=== PATIENT | male | born 1950 | race African-American/Black ===

== ENCOUNTER 2023-09-05 13:17 | Inpatient (IN) | payer OTHER ==
[2023-09-05 14:10] VITALS: BMI 19.2
[2023-09-05] MEDS ORDERED: MAG HYDROX/AL HYDROX/SIMETH 30 ML UNIT-DOSE CUP PO PRN (15:06)
[2023-09-05] MEDS ORDERED: DICYCLOMINE HCL 10 MG CAPSULE PO PRN (15:06)
[2023-09-05] MEDS ORDERED: LOPERAMIDE HCL 2 MG CAPSULE PO PRN (15:06)
[2023-09-05] MEDS ORDERED: LORazepam 1 MG TABLET PO PRN (15:06)
[2023-09-05] MEDS ORDERED: MAGNESIUM HYDROX 2400MG/30ML ORAL SUSPENSION 30 ML CUP PO PRN (15:06)
[2023-09-05] MEDS ORDERED: BENZONATATE 200 MG CAPSULE PO PRN (15:06)
[2023-09-05] MEDS ORDERED: NALOXONE HCL (KLOXXADO) 8 MG SPRAY NS PRN (15:06)
[2023-09-05] MEDS ORDERED: POLYETHYLENE GLYCOL (HEALTHYLAX) 3350 17 GM PACKET PO PRN (15:06)
[2023-09-05] MEDS ORDERED: ONDANSETRON *ODT* 4 MG TABLET SL PRN (15:06)
[2023-09-05] MEDS ORDERED: BENZOCAINE/MENTHOL (CHLORASEPTIC ) LOZENGE MM PRN (15:06)
[2023-09-05] MEDS ORDERED: NALOXONE HCL 0.4 MG/ML VIAL IM PRN (15:06)
[2023-09-05] MEDS ORDERED: BISMUTH SUBSALICYLATE 524 MG/30 ML PO PRN (15:06)
[2023-09-05] MEDS ORDERED: ACETAMINOPHEN 325 MG TABLET (FP) PO PRN (15:06)
[2023-09-05] MEDS ORDERED: IBUPROFEN 600 MG TABLET (FP) PO PRN (15:06)
[2023-09-05] MEDS ORDERED: IBUPROFEN 400 MG TABLET (FP) PO PRN (15:06)
[2023-09-05] MEDS ORDERED: amLODIPine BESYLATE 5 MG TABLET (FP) ONE (16:02)
[2023-09-05] MEDS: amLODIPine BESYLATE 10 MG TABLET (FP) PO SCH (16:03)
[2023-09-05] MEDS: LORazepam 1 MG TABLET PO SCH (18:01)
[2023-09-05] MEDS ORDERED: ALBUTEROL SO4 0.083% IH SOL 2.5 MG/3 ML VIAL.NEB. NEB PRN (18:50)
[2023-09-05] MEDS: MELATONIN 5 MG TABLETS PO SCH (22:20)
[2023-09-05] MEDS: BUDESONIDE/FORMETEROL FUMARATE 80/4.5 mcg INHALER IH SCH (22:20)
[2023-09-05] MEDS: METHOCARBAMOL 500 MG TABLET PO PRN (22:20)
[2023-09-05] MEDS: THIAMINE 100 MG TABLET PO SCH (22:20)
[2023-09-05] MEDS: guaiFENesin 600 MG TABLET.ER (FP) PO PRN (22:23)
[2023-09-06] MEDS: PRENATAL VITAMINS W/ FOLIC ACID TABLET (FP) PO SCH (10:10)
[2023-09-06 11:02] LABS: HEMATOCRIT 36.3 % (35.4-49); HEMOGLOBIN 12.1 GM/dL (11.7-16.9); MCH 27.7 pg (25.7-33.7); MCHC 33.3 g/dl (32.0-35.9); MEAN CELL VOLUME 83.2 fl (80-96); MEAN PLT VOLUME 7.6 fl (7.5-11.1); PLATELET COUNT 267 10^3/uL (134-434); RBC 4.37 M/mm3 (4.00-5.60); RDW 14.2 % (11.9-15.9); WHITE BLOOD COUNT 5.1 K/mm3 (4.0-10.0)
[2023-09-06 12:24] LABS: CHLORIDE 108 mmol/L (98-107); POTASSIUM 4.2 mmol/L (3.5-5.1); SODIUM 142 mmol/L (136-145)
[2023-09-06 12:29] LABS: SGPT/ALT 17 U/L (13-61)
[2023-09-06 12:30] LABS: ALBUMIN 2.7 g/dl (3.4-5.0); ANION GAP 3 mmol/L (4-13); CALCIUM 8.8 mg/dL (8.5-10.1); CO2 31 mmol/L (21-32); GLUCOSE,RANDOM 73 mg/dL (74-106)
[2023-09-06 12:31] LABS: BILIRUBIN,TOTAL 0.3 mg/dL (0.2-1); TOT PROT 6.2 g/dl (6.4-8.2)
[2023-09-06 12:32] LABS: ALK PHOS 73 U/L (45-117)
[2023-09-06 12:33] LABS: SGOT/AST 13 U/L (15-37)
[2023-09-06 14:21] LABS: HIV INTERPRETATION NEGATIVE (NEGATIVE)
[2023-09-06] MEDS: LACTULOSE 20 GM/30 ML UDC (FOR ORAL USE ONLY) PO SCH (16:57)
[2023-09-06] MEDS: hydrOXYzine PAMOATE 25 MG CAPSULE (FP) PO PRN (22:39)
[2023-09-07] MEDS: LORazepam 1 MG TABLET PO SCH (05:47)
[2023-09-07] MEDS: TETRAHYDROZOLINE HCL EYE DROPS OU PRN (15:22)
[2023-09-08] MEDS ORDERED: LORazepam 0.5 MG TABLET PO PRN
[2023-09-08] MEDS: LORazepam 0.5 MG TABLET PO SCH (05:40)
[2023-09-08 13:01] VITALS: RESP 16
[2023-09-08] MEDS: ALBUTEROL SO4 HFA INHALER IH PRN (17:24)
[2023-09-09] MEDS: LORazepam 0.5 MG TABLET PO ONE (05:47)
[2023-09-09 06:37] VITALS: BP 140/84; PULSE 77; TEMP 97.7
== END 2023-09-09 09:11 | disposition home or self-care (01) | DRG 897 ==
LOC: YASAS 13:17 → Y3N 15:47
PROVIDERS: ADMIT Allergy & Immunology; ATTEND Surgery
PROC: HZ2ZZZZ Detoxification Services for Substance Abuse Treatment (ICD-10-PCS; principal; 2023-09-05)
DX: F10.20 Alcohol dependence, uncomplicated (principal); F14.10 Cocaine abuse, uncomplicated; F17.210 Nicotine dependence, cigarettes, uncomplicated; F31.9 Bipolar disorder, unspecified; I10 Essential (primary) hypertension; J45.909 Unspecified asthma, uncomplicated; Z63.4 Disappearance and death of family member; Z91.199 Patient's noncompliance with other medical treatment and regimen due to unspecified reason
CPT/HCPCS: 0241U-QW; 36415; 71045-TC-FY; 80053; 80164; 80305; 80307; 82140; 83036; 85027; 86593; 86780; 86803; 87389; 93005; 93010